=== PATIENT | male | born 1980 | race Two or more races ===

== ENCOUNTER 2024-06-05 06:47 | Day surgery (SDC) | payer OTHER, SELFPAY ==
[2024-06-03 15:09] VITALS: BMI 22.4
--- NOTE | 2024-06-04 09:04 | HO.ANESPROP2 ---
Documented by User: Danii Malone NP 06/04/24 09:04 HPI - Anesthesia Eval Consult details Narrative: 44yo M for Colonoscopy [facility] Past Medical History Medical History No pertinent past medical history Surgical History Surgical History No pertinent past surgical history Social History Social History Household Members: Spouse Housing: Apartment Patient Tobacco Use Status: Current everyday Tobacco user Tobacco use type: Cigarette Cigarettes Per Day: 2 Use of substances other than those prescribed or required for medical reasons: No Are you DNR?: No Advance Directives: No Advance Directives Information Provided: Yes Current occupational status: employed 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 Meds Allergies Allergy/AdvReac Type Severity Reaction Status Date / Time No Known Allergies Allergy Verified 06/05/24 07:23 Home Medications ?Medication ?Instructions ?Recorded ?Confirmed ?Last Taken ?Type No Known Home Meds 06/05/24 06/05/24 Unknown History Exam Height,Weight and Vital Signs: Height 5 ft 9 in Weight 68.946 kg Assessment and Plan Assessment Anesthesia Assessment: Chart Reviewed Documented by User: Leah Solomon MD 06/05/24 09:08 [facility] Past Medical History Medical History No pertinent past medical history Surgical History Surgical History No pertinent past surgical history History of Problems with Anesthesia: No Social History Social History Household Members: Spouse Housing: Apartment Patient Tobacco Use Status: Current everyday Tobacco user Tobacco use type: Cigarette Cigarettes Per Day: 2 Use of substances other than those prescribed or required for medical reasons: No Are you DNR?: No Advance Directives: No Advance Directives Information Provided: Yes Current occupational status: employed 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 Meds Allergies Allergy/AdvReac Type Severity Reaction Status Date / Time No Known Allergies Allergy Verified 06/05/24 07:23 Home Medications ?Medication ?Instructions ?Recorded ?Confirmed ?Last Taken ?Type No Known Home Meds 06/05/24 06/05/24 Unknown History Exam Airway Mallampati Class: II TM Dist: >3cm Neck ROM: Full Loose/Missing/Broken Teeth: No Heart: RRR Lungs: CTA Assessment and Plan Assessment Anesthesia Assessment: Anesthesia Plan Discussed Final Anesthetic Review History of Problems with Anesthesia: No NPO: Yes ASA Class: II Final Preanesthetic Review: Meds/Allgs Chart Reviewed, Consent Obtained/Reviewed and Anes Risks/Benef Reviewed Patient Risk: Low Procedure Risk: Low Anesthetic Plan Anesthetic Plan: MAC: Disposition: Standard PACU
[2024-06-05 07:24] VITALS: BMI 22.2
[2024-06-05 07:31] VITALS: BP 117/82; PULSE 78; RESP 15; TEMP 36.3; O2SAT 99
[2024-06-05] MEDS: Lactated Ringers 1,000 ML 100 ML IVCONT (07:49)
[2024-06-05 10:04] VITALS: BP 91/60; PULSE 62; RESP 18; TEMP 36.1; O2SAT 100
--- NOTE | 2024-06-05 10:05 | PM.OP ---
Brief Operative Note Date of Service: 06/05/24 Pre-op diagnosis: Screening Post-op diagnosis: other (Polyps) Procedure: Colonoscopy to the cecum and TI with cold snare polypectomy of cecal polyp and bx/removal of rectal polyp Surgeon: John Stinson MD Anesthesia: MAC Was an Director Of Market Research used for this Procedure?: No Estimated blood loss (mL): 2.0 Pathology: other (A. Cecal polyp B. Rectal polyp) Condition: stable Disposition: PACU
[2024-06-05 10:19] VITALS: BP 103/75; PULSE 57; RESP 18; TEMP 36.2; O2SAT 100
--- NOTE | 2024-06-05 10:28 | OP_ITS ---
DATE OF SERVICE: 06/05/2024 SURGEON: John Stinson MD PREOPERATIVE DIAGNOSIS: Colorectal cancer screening. POSTOPERATIVE DIAGNOSIS: PROCEDURE PERFORMED: Colonoscopy to the cecum and terminal ileum with cold snare polypectomy of cecal polyp and biopsy and removal of rectal polyp. ESTIMATED BLOOD LOSS: COMPLICATIONS: ANESTHESIA: Monitored anesthesia care. ASSISTANTS: SPECIMENS: POSTOPERATIVE DIAGNOSES: Colorectal cancer screening, colon polyps, internal hemorrhoids. DESCRIPTION OF PROCEDURE: The patient was placed in the left lateral decubitus position. The digital rectal exam revealed no abnormalities. The Olympus video pediatric colonoscope was then entered into the rectum and advanced easily to the cecum. Once in the cecum, I did identify normal-appearing cecal pouch other than an approximately 5 mm polyp, which was removed by cold snare polypectomy and recovered by suction. The polypectomy site appeared clean, without any sign of residual polyp nor any significant bleeding. The remainder of the cecum including the appendiceal orifice appeared normal. The terminal ileum was cannulated and appeared normal. The scope was withdrawn back in the colon. The scope was then slowly withdrawn assessing all mucosal surfaces carefully. Preparation was excellent. In the proximal rectum, was a flat, approximately 3 mm polyp, which was biopsied and completely removed with a cold biopsy forceps. I did not visualize any other polyps, colitis, nor angiodysplasias. In the rectum, scope was retroflexed, visualizing some small internal hemorrhoids, but no other pathology. The rectal mucosa appeared normal. The scope was straightened and withdrawn from the patient. He tolerated the procedure well and was returned to the recovery area in stable condition. IMPRESSION: 1. Small colon polyps. 2. Internal hemorrhoids. PLAN: The results of the pathology will be checked. If either of these are tubular adenoma, I would recommend a followup colonoscopy in 5 years. If they are both hyperplastic, I would recommend a followup colonoscopy in 10 years. He was advised not to use any aspirin and NSAIDs for 1 week. MD BARBI Armenta/CHARITY / [id number]
== END 2024-06-05 10:45 | disposition home or self-care (01) ==
PROVIDERS: PCP Internal Medicine; Visit Provider Internal Medicine
PROC: 0DJD8ZZ Inspection of Lower Intestinal Tract, Via Natural or Artificial Opening Endoscopic (ICD-10-PCS; CPT 45378; principal; 2024-06-05 08:40)
DX: Z12.11 Encounter for screening for malignant neoplasm of colon (principal); D12.0 Benign neoplasm of cecum; K62.1 Rectal polyp; K64.8 Other hemorrhoids; F17.210 Nicotine dependence, cigarettes, uncomplicated
CPT/HCPCS: 45385; 45380; 88305; J2003; J2250; J2704